=== PATIENT | female | born 1955 | race African-American/Black ===

== ENCOUNTER 2016-08-02 10:30 | Emergency (ER) | payer BC ==
[2016-08-02 10:52] VITALS: BMI 21.0
[2016-08-02] MEDS ORDERED: CATAPRES TAB 0.1 MG PO ONE (11:03)
--- NOTE | 2016-08-02 11:04 | DR.GENAD ---
HPI - PCP Primary Care Physician: NFD - Complaint/Symptoms Chief Complaint Doctors Comments: Patient states that on yesterday she got a headache with pain behind the eyes. Today he had three diarrheal stools w/o vomiting or documented fever. Chief Complaint:: HEADACHE AND HIGH BLOOD PRESSURE WITH NAUSEA AND ABD PAIN AND DIARRHEA Self Treatment fo Chief Complaint: TYLENOL - Source History Provided: Patient - Mode of Arrival Mode of Arrival: Wheelchair - Timing Onset of Chief Complaint: 08/01/16 PMH - PMH Past Medical History: No Past Surgical History: No Surgical History: - Family History History of Family Medical Conditions: Yes Family Medical History: Heart Failure, Sudden Cardiac , Hypertension - Social History Type of Tobacco Use: Cigarettes Alcohol Use: Rarely Do you use any recreational Drugs:: No Lives With: Family Lives Where: Home - infectious screening In the last 2 months have you had wt loss of >10#?: NO Have you had fever, night sweats or hemotysis?: No Have you traveled outside the country in the last 6 months?: No Isolation: Standard ROS - Review of Systems Constitutional: No Symptoms Reported Eyes: No Symptoms Reported ENTM: No Symptoms Reported Respiratoy: No Symptoms Reported Cardiovascular: No Symptoms Reported Gastrointestinal/Abdominal: No Symptoms Reported Genitourinary: No Symptoms Reported Neurological: No Symptoms Reported Musculoskeletal: No Symptoms Reported Integumentary: No Symptoms Reported Hematologic/Lymphatic: No Symptoms Reported Endocrine: No Symptoms Reported Psychiatric: No Symptoms Reported All Other Systems: Reviewed and Negative PE - Vital Signs Vitals: Temperature 98.1 F Pulse Rate [Left] 76 Pulse Rate 104 Respiratory Rate 14 Blood Pressure [Right Arm] 184/93 Blood Pressure 212/126 O2 Sat by Pulse Oximetry 100 - General Limitations: No Limitations General Appearance: Alert - Head Head Exam: Normal Inspection - Eyes Eye exam: Normal Appearance - ENT ENT Exam: Normal Exam External Ear Exam: Normal External Inspection TM/Canal Exam: Bilateral Normal Nose Exam: Normal Nose Exam Mouth Exam: Normal Inspection Throat Exam: Normal Inspection - Neck Neck Exam: Normal Inspection - Respiratory Respiratory Exam: Normal Lung Sounds Bilat Respiratory Exam: Bilateral Clear to Auscultation - Cardiovascular Cardiovascular Exam: Regular Rate, Normal Rhythm - Abdominal Exam Abdominal Exam: Normal Inspection Abdominal Tenderness: negative: RUQ, RLQ, LUQ, LLQ, Epigastrium, Suprapubic, Diffuse, Mild, Moderate, Severe, Other - Extremities Extremities Exam: Normal Inspection, Full ROM - Back Back Exam: Normal Inspection, Full ROM - Neurologic Neurological Exam: Alert, Oriented X3, CN II-XII Intact - Psychiatric Psychiatric Exam: Normal Affect - Skin Skin Exam: Warm, Dry, Intact Course - Reevaluation 1st: Improved ROR - Labs Reviewed Result Diagrams: 08/02/16 11:08 08/02/16 11:08 Laboratory: WBC 4.8 X10^3/uL (3.6-10.0) 08/02/16 11:08 RBC 5.48 X10^6/uL (3.5-5.4) H 08/02/16 11:08 Hgb 12.1 g/dL (12.0-16.0) 08/02/16 11:08 Hct 38.5 % (36.0-47.0) 08/02/16 11:08 MCV 70.4 fL (80.0-100.0) L 08/02/16 11:08 MCH 22.0 pg (27.0-34.0) L 08/02/16 11:08 MCHC 31.3 g/dL (33.0-35.0) L 08/02/16 11:08 RDW 14.2 % (11.6-16.5) 08/02/16 11:08 Plt Count 148 X10^3/uL (150.0-450.0) L 08/02/16 11:08 Plt Count Comment Adequate (ADEQUATE) 08/02/16 11:08 MPV 9.2 fL (7.4-11.0) 08/02/16 11:08 Neut % 71.7 % (42.0-75.0) 08/02/16 11:08 Lymph % 10.6 % (21.0-51.0) L 08/02/16 11:08 Boundary % 14.9 % (0.0-13.0) H 08/02/16 11:08 Eos % 0.2 % (0.9-2.9) L 08/02/16 11:08 Baso % 2.6 % (0.2-1.0) H 08/02/16 11:08 Neut # 3.5 x10^3/uL (2.2-4.8) 08/02/16 11:08 Lymph # 0.5 X10^3/uL (1.3-2.9) L 08/02/16 11:08 Boundary # 0.7 x10^3/uL (0.3-0.8) 08/02/16 11:08 Eos # 0.0 x10^3/uL (0.0-0.2) 08/02/16 11:08 Baso # 0.1 X10^3/uL (0.0-0.1) 08/02/16 11:08 Absolute Nucleated RBC 0.2 /100WBC 08/02/16 11:08 Total Counted 100 08/02/16 11:08 Neutrophils % (Manual) 62 % (39-76) 08/02/16 11:08 Lymphocytes % (Manual) 28 % (13-43) 08/02/16 11:08 Monocytes % (Manual) 8 % (4-9) 08/02/16 11:08 Eosinophils % (Manual) 2 % (0-6) 08/02/16 11:08 Plt Morphology Comment Normal (NORMAL) 08/02/16 11:08 RBC Morphology Abnormal (NORMAL) A 08/02/16 11:08 Hypochromasia 1+ A 08/02/16 11:08 Anisocytosis Slight A 08/02/16 11:08 Sodium 140 mmol/L (136-145) 08/02/16 11:08 Corrected Sodium 141 mmol/L (136-145) 08/02/16 11:08 Potassium 3.6 mmol/L (3.5-5.1) 08/02/16 11:08 Chloride 102 mmol/L (98-107) 08/02/16 11:08 Carbon Dioxide 27.8 mmol/L (21-32) 08/02/16 11:08 BUN 13 mg/dL (7-18) 08/02/16 11:08 Creatinine 0.77 mg/dL (0.55-1.02) 08/02/16 11:08 Est GFR (MDRD) Af Amer > 60 (>60) 08/02/16 11:08 Est GFR (MDRD) Non-Af > 60 (>60) 08/02/16 11:08 Glucose 132 mg/dL (65-99) H 08/02/16 11:08 Calcium 9.0 mg/dL (8.5-10.1) 08/02/16 11:08 Corrected Calcium TNP 08/02/16 11:08 Total Bilirubin 0.40 mg/dL (0.2-1.0) 08/02/16 11:08 AST 22 Units/L (15-37) 08/02/16 11:08 ALT 22 Units/L (12-78) 08/02/16 11:08 Alkaline Phosphatase 96 Units/L (46-116) 08/02/16 11:08 Total Protein 8.2 g/dL (6.4-8.2) 08/02/16 11:08 Albumin 4.0 g/dL (3.4-5.0) 08/02/16 11:08 Globulin 4.2 g/dL (2.5-4.5) 08/02/16 11:08 Albumin/Globulin Ratio 1.0 Ratio (1.1-2.1) L 08/02/16 11:08 Urine pH 6.0 (5.0 - 8.0) 08/02/16 11:36 Ur Specific [place] 1.015 (1.000-1.030) 08/02/16 11:36 Urine Protein Negative (NEGATIVE) 08/02/16 11:36 Urine Glucose (UA) Negative (NEGATIVE) 08/02/16 11:36 Urine Ketones Negative (NEGATIVE) 08/02/16 11:36 Urine Occult Blood 1+ (NEGATIVE) 08/02/16 11:36 Urine Nitrite Negative (NEGATIVE) 08/02/16 11:36 Urine Bilirubin Negative (NEGATIVE) 08/02/16 11:36 Urine Urobilinogen Normal (NORMAL) 08/02/16 11:36 Ur Leukocyte Esterase 1+ (NEGATIVE) 08/02/16 11:36 - XRAY XRAY Interpreted by: Self (Acute abdominal series negative: chest c/w COPD; sinus series negative) - Diagnosis Discharge Problem: Acute headache Qualifiers: Headache type: unspecified Intractability: not intractable Qualified Code(s): R51 - Headache Diarrhea Qualifiers: Diarrhea type: unspecified type Qualified Code(s): R19.7 - Diarrhea, unspecified - Discharge Plan Condition: Stable - Follow ups/Referrals Follow ups/Referrals: NFD,None [Primary Care Provider] - 3 days - Instructions
[2016-08-02] MEDS ORDERED: CATAPRES TAB 0.1 MG ONE (11:06)
[2016-08-02 11:31] LABS: BASOPHILS # (AUTO) 0.1 X10^3/uL (0.0-0.1); BASOPHILS % (AUTO) 2.6 % (0.2-1.0); EOSINOPHILS % (AUTO) 0.2 % (0.9-2.9); HEMATOCRIT 38.5 % (36.0-47.0); HEMOGLOBIN 12.1 g/dL (12.0-16.0); LYMPHOCYTES # (AUTO) 0.5 X10^3/uL (1.3-2.9); LYMPHOCYTES % (AUTO) 10.6 % (21.0-51.0); MEAN CORPUSCULAR HGB CONC 31.3 g/dL (33.0-35.0); MEAN CORPUSCULAR VOLUME 70.4 fL (80.0-100.0); MEAN PLATELET VOLUME 9.2 fL (7.4-11.0); MONOCYTES # (AUTO) 0.7 x10^3/uL (0.3-0.8); MONOCYTES % (AUTO) 14.9 % (0.0-13.0); NEUTROPHILS # (AUTO) 3.5 x10^3/uL (2.2-4.8); NEUTROPHILS % (AUTO) 71.7 % (42.0-75.0); PLATELET COUNT 148 X10^3/uL (150.0-450.0); RED BLOOD COUNT 5.48 X10^6/uL (3.5-5.4); RED CELL DISTRIBUTION WIDTH 14.2 % (11.6-16.5); WHITE BLOOD COUNT 4.8 X10^3/uL (3.6-10.0)
[2016-08-02 11:39] VITALS: BP 184/93
[2016-08-02 11:39] LABS: ALANINE AMINOTRANSFERASE 22 Units/L (12-78); ALKALINE PHOSPHATASE 96 Units/L (46-116); ASPARTATE AMINO TRANSFERASE 22 Units/L (15-37); BLOOD UREA NITROGEN 13 mg/dL (7-18); CARBON DIOXIDE 27.8 mmol/L (21-32); CHLORIDE 102 mmol/L (98-107); COR NA(FOR HYPERGLY) 141 mmol/L (136-145); CREATININE 0.77 mg/dL (0.55-1.02); GLUCOSE 132 mg/dL (65-99); SODIUM 140 mmol/L (136-145); TOTAL PROTEIN 8.2 g/dL (6.4-8.2); eGFR BLACK RACES > 60 (>60); eGFR NON BLACK RACES > 60 (>60)
--- NOTE | 2016-08-02 11:44 | RAD ---
HISTORY: Headache Study: Sinus radiographs Comparison: None Findings: No evidence of facial bone fracture. The visualized paranasal sinuses are clear. The soft tissues ar e unremarkable. The calvarium and other osseous structures are unremarkable. IMPRESSION: 1. No evidence of acute sinus disease. Reported By:
--- NOTE | 2016-08-02 11:46 | RAD ---
HISTORY: Nausea Study: Acute abdominal series Comparison: None Findings: The lungs are clear without consolidation, effusion or pneumothorax. The cardiac and mediastinal co ntours are within normal limits. Flat plate and upright evaluation of the abdomen demonstrates a normal bowel gas pattern. No gross f ree intraperitoneal air. There is a 3 mm calcification projected over the right kidney suggesting a nonobstructing renal stone. There are degenerative changes of the lumbosacral spine. IMPRESSION: 1. No acute cardiopulmonary disease. 2. No evidence of acute abdominal pathology. 3. 3 mm calcification projected over the right renal shadow suggesting a nonobstructing stone. Reported By:
[2016-08-02 11:50] LABS: HYPOCHROMASIA 1+; PLATELET MORPHOLOGY COMMENT NORMAL (NORMAL)
[2016-08-02 11:51] LABS: ANISOCYTOSIS SLIGHT
[2016-08-02 11:52] LABS: BILIRUBIN,URINE NEGATIVE (NEGATIVE); BLOOD/HEMOGLOBIN,URINE 1+ (NEGATIVE); GLUCOSE, URINE NEGATIVE (NEGATIVE); KETONES,URINE NEGATIVE (NEGATIVE); LEUKOCYTE ESTERASE ,URINE 1+ (NEGATIVE); NITRITES,URINE NEGATIVE (NEGATIVE); PROTEIN,URINE NEGATIVE (NEGATIVE); UROBILINOGEN,URINE NORMAL (NORMAL)
[2016-08-02 12:01] LABS: APPEARANCE,URINE CLEAR (CLEAR); BACTERIA,URINE NEGATIVE /HPF (NEGATIVE); COLOR,URINE YELLOW (YELLOW); RBC,URINE 0-2 /HPF (NEGATIVE); SQUAMOUS EPITHELIAL CELL,UR MODERATE /HPF (NEGATIVE); TRICHOMONAS,URINE FEW /HPF (NEGATIVE)
== END 2016-08-02 12:17 | disposition home or self-care (01) ==
LOC: ER 10:57
DX: R51 Headache (principal); R19.7 Diarrhea, unspecified
CPT/HCPCS: 36415; 70220; 74022; 80053; 81001; 85025; 99282; 99283

== ENCOUNTER 2016-11-14 15:35 | Emergency (ER) | payer BC ==
[2016-11-14 15:39] VITALS: BP 153/87; BMI 21.4
--- NOTE | 2016-11-14 16:02 | DR.GENAD ---
HPI - PCP Primary Care Physician: none - Complaint/Symptoms Chief Complaint Doctors Comments: Patient with a history of severe DJD of the lumbar spine dating bact to 08/11/15. Today c/o of left lower extremity pain. Chief Complaint:: pt hurts all the way down her left side its been going on for a year now - Source History Provided: Patient - Mode of Arrival Mode of Arrival: Ambulatory - Timing Onset of Chief Complaint: 11/02/15 PMH - PMH Past Medical History: No Past Surgical History: Yes Surgical History: - Family History History of Family Medical Conditions: Yes Family Medical History: Heart Failure, Sudden Cardiac , Hypertension - Social History Does patient currently use any type of tobacco product: Yes Have you used tobacco products in the last 12 months: Yes Type of Tobacco Use: Cigarettes How many years tobacco product used: 50 Does any household member use tobacco: No Alcohol Use: None Do you use any recreational Drugs:: No Lives With: Family Lives Where: Home - infectious screening In the last 2 months have you had wt loss of >10#?: NO Have you had fever, night sweats or hemotysis?: No Have you traveled outside the country in the last 6 months?: No Isolation: Standard ROS - Review of Systems Constitutional: No Symptoms Reported Eyes: No Symptoms Reported ENTM: No Symptoms Reported Respiratoy: No Symptoms Reported Cardiovascular: No Symptoms Reported Gastrointestinal/Abdominal: No Symptoms Reported Genitourinary: No Symptoms Reported Neurological: No Symptoms Reported Musculoskeletal: Back (DJD with radiculopathy lumbar spine), Leg Integumentary: No Symptoms Reported Hematologic/Lymphatic: No Symptoms Reported Endocrine: No Symptoms Reported Psychiatric: No Symptoms Reported All Other Systems: Reviewed and Negative PE - Vital Signs Vitals: Temperature 97.8 F Pulse Rate 98 Respiratory Rate 18 Blood Pressure [Right Arm] 184/93 Blood Pressure 153/87 O2 Sat by Pulse Oximetry 100 - General General Appearance: Alert - Head Head Exam: Normal Inspection, Atraumatic - Eyes Eye exam: Normal Appearance, PERRL, EOMI - ENT ENT Exam: Normal Exam External Ear Exam: Normal External Inspection TM/Canal Exam: Bilateral Normal Nose Exam: Normal Nose Exam Mouth Exam: Normal Inspection Throat Exam: Normal Inspection - Neck Neck Exam: Normal Inspection - Chest Chest Inspection: Normal Inspection - Respiratory Respiratory Exam: Normal Lung Sounds Bilat Respiratory Exam: Bilateral Clear to Auscultation - Cardiovascular Cardiovascular Exam: Regular Rate - Abdominal Exam Abdominal Exam: Normal Inspection Abdominal Tenderness: negative: RUQ, RLQ, LUQ, LLQ, Epigastrium, Suprapubic, Diffuse, Mild, Moderate, Severe, Other - Extremities Extremities Exam: Normal Inspection - Back Back Exam: Tenderness (Lumbar pain), (L) Sciatic Notch Tendern - Neurologic Neurological Exam: Alert, Oriented X3, CN II-XII Intact - Psychiatric Psychiatric Exam: Normal Affect, Normal Mood - Skin Skin Exam: Warm, Dry, Intact, Normal Color Course - Treatment Treatment: Review previous CT scans of back-08/11/15: Severe DJD lumbar spine - Diagnosis 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
[2016-11-14] MEDS ORDERED: TORADOL 30 MG VIAL IM ONE (16:14)
[2016-11-14] MEDS ORDERED: TORADOL 30 MG VIAL ONE (16:15)
== END 2016-11-14 16:32 | disposition home or self-care (01) ==
LOC: ER 15:43
DX: M47.26 Other spondylosis with radiculopathy, lumbar region (principal)
CPT/HCPCS: 96372; 99282; J1885